=== PATIENT | female | born 1980 | race Caucasian/White ===

== ENCOUNTER 2016-10-29 15:43 | Outpatient (CLI) | payer BC | END 2016-10-29 15:44 | disposition home or self-care (01) | DX: M51.16 Intervertebral disc disorders with radiculopathy, lumbar region (principal); M47.26 Other spondylosis with radiculopathy, lumbar region ==

== ENCOUNTER 2017-09-26 17:04 | Outpatient (CLI) | payer BC, OTHER | END 2017-09-26 17:05 | disposition home or self-care (01) | LOC: LAB.WCP 17:04 | PROVIDERS: ATTEND Family Medicine | DX: R31.9 Hematuria, unspecified (principal) | CPT/HCPCS: 87086 ==

== ENCOUNTER 2017-12-29 08:58 | Outpatient (CLI) | payer OTHER ==
--- NOTE | 2017-12-29 14:28 | MRI Report ---
EXAM: RIGHT HIP MRI WITHOUT CONTRAST EXAM DATE: 12/29/2017 09:15 AM. CLINICAL HISTORY: Right hip pain. No known injury. COMPARISON: None. TECHNIQUE: Multiplanar, multisequence T1-weighted and fluid-sensitive, small [id number] sequences of the hip and large [id number] sequences of the pelvis without contrast. Other: None. FINDINGS: Bones: No fractures or subluxations. No marrow edema or bone lesions. Right Hip: No acetabular retroversion. Femoral head/neck offset is within normal limits. No effusion or loose bodies. The articular cartilage is intact. Small focal full-thickness tear at the anterosupe rior aspect of the right acetabular labrum (sagittal image 14 of series 701 and axial oblique image 2 4 of series 601). The ligamentum teres is intact. Other Joints: Degenerative disk changes at L4-L5 of the lumbar spine. The sacroiliac joints and pubic symphysis are unremarkable. The left hip is grossly unremarkable on these large field of view images . Musculature: There is a minimal amount of edema within the right quadratus femoris muscle within the right ischiofemoral space. The gluteus medius and minimus tendons are normal. The visualized hamstri ng tendons are normal. The right ischiofemoral space is 9 mm and the left ischiofemoral space is 15 m m. The right quadratus femoris space is 10 mm and the left quadratus femoris space is 13 mm. Pelvic Cavity: There is an approximately 2.4 x 2 cm intramural fibroid at uterine fundus. Note, a cer vical diaphragm contraceptive device is present. No free fluid or lymphadenopathy. Other: The visualized sciatic nerves are unremarkable. No bursitis. The subcutaneous tissues are unre markable. IMPRESSION: 1. Small focal full-thickness tear at the anterosuperior aspect of the right acetabular labrum. 2. Degenerative disk changes at L4-L5 lumbar spine. 3. Diminished right quadratus femoris and ischiofemoral spaces. There is minimal amount of edema with in the right quadratus femoris muscle within the right ischiofemoral space. The findings are suspicio us for ischiofemoral impingement. 4. Intramural uterine fundal fibroid. [facility] MUSCULOSKELETAL RADIOLOGY SECTION Referring Provider Line: [phone] SITE ID: [id number]
== END 2017-12-29 08:59 | disposition home or self-care (01) ==
LOC: DI 08:58
PROVIDERS: ATTEND Family Medicine
DX: S73.101A Unspecified sprain of right hip, initial encounter (principal); M51.36 Other intervertebral disc degeneration, lumbar region; M25.451 Effusion, right hip